=== PATIENT | male | born 1985 | race Caucasian/White ===

== ENCOUNTER 2016-06-20 06:27 | Emergency (ER) | payer OTHER ==
[2016-06-20 08:08] LABS: BASOPHIL 0.3 % (0-2); EOSINOPHIL 0.3 % (0-5); HCT 43.2 % (42.0-52.0); HGB 15.3 g/dl (13.2-18.0); LYMPHOCYTE 11.7 % (15-48); MCH 29.5 pg (25.0-31.0); MCHC 35.4 g/dL (32.0-36.0); MCV 83.2 fL (78.0-100.0); MPV 10.3 fL (6.0-9.5); NEUTROPHIL 79.7 % (41-80); PLT 257 K/uL (150-400); RBC 5.19 M/uL (4.70-6.00); RDW 12.1 % (11.5-14.0); WBC 10.5 K/uL (4.0-10.5)
[2016-06-20 08:25] LABS: CREATININE 1.2 mg/dL (0.7-1.2); POTASSIUM 3.9 mmol/L (3.5-5.1)
[2016-06-20 09:54] LABS: BILIRUBIN NEGATIVE (NEGATIVE); BLOOD NEGATIVE Ery/uL (NEGATIVE); CLARITY CLEAR (CLEAR); COLOR YELLOW (YELLOW); GLUCOSE (U) NORMAL (NORMAL); KETONE (U) NEGATIVE (NEGATIVE); LEUKOCYTES NEGATIVE Leu/uL (NEGATIVE); NITRITE NEGATIVE (NEGATIVE); PROTEIN NEGATIVE (NEGATIVE); SPECIFIC GRAVITY 1.025 (1.001-1.030); UROBILINOGEN 0.2 mg/dL (0.2-1.0)
== END 2016-06-20 11:22 | disposition home or self-care (01) ==
LOC: FER 06:27
PROVIDERS: Emergency Medicine
DX: M54.9 Dorsalgia, unspecified (principal); R11.2 Nausea with vomiting, unspecified; R10.814 Left lower quadrant abdominal tenderness; R06.02 Shortness of breath; R05 Cough
CPT/HCPCS: 36415; 74000; 80048; 81003; 83690; 85025; J1885; J2405